=== PATIENT | male | born 1955 | race Hispanic/Latino ===

== ENCOUNTER 2017-10-27 16:19 | Emergency (ER) | payer BC, OTHER ==
[2017-10-27 16:20] VITALS: BMI 24.7
[2017-10-27 16:26] VITALS: O2SAT 100
[2017-10-27 17:44] VITALS: BP 137/78; PULSE 69; RESP 18; TEMP 98.3
--- NOTE | 2017-10-27 17:49 | ED PDOC ---
HPI: Eye Injury/Pain Time Seen by Provider: 10/27/17 16:40 Chief Complaint (Nursing): Eye Problem Chief Complaint (Provider): Right Eye Problem History Per: Patient History/Exam Limitations: no limitations Onset/Duration Of Symptoms: Days (x2) Current Symptoms Are (Timing): Still Present Additional Complaint(s): 62 y/o male with no significant PMHx presenting for evaluation of a right eye problem x2 days. Patient reports over 24 hours ago he began to see a spot with his right eye that follows the movement of his eye. Patient states the spot increased in size yesterday, but has remained the same size since. He denies any pain, redness, discharge, or headache. PMD: Dr. Dillan Betts Past Medical History Reviewed: Historical Data, Nursing Documentation, Vital Signs Vital Signs: Last Vital Signs Temp 98.3 F 10/27/17 17:43 Pulse 69 10/27/17 17:43 Resp 18 10/27/17 17:43 BP 137/78 10/27/17 17:43 Pulse Ox 100 10/27/17 17:43 - Medical History PMH: Arthritis, Asthma Denies: Chronic Kidney Disease - Surgical History Surgical History: No Surg Hx - Family History Family History: States: Unknown Family Hx - Social History Current smoker - smoking cessation education provided: No Alcohol: None Drugs: Denies - Home Medications Home Medications: Ambulatory Orders Medication Instructions Recorded Etanercept [Enbrel] 25 mg SC .QWEEK 03/08/15 Hydrocodone/Acetaminophen [Vicodin 2 % PO DAILY 03/08/15 5 mg-300 mg] Indomethacin [Indocin SR] 1 tab PO DAILY 03/08/15 - Allergies Allergies/Adverse Reactions: Allergies Allergy/AdvReac Type Severity Reaction Status Date / Time No Known Allergies Allergy Verified 10/27/17 16:22 Review of Systems ROS Statement: Except As Marked, All Systems Reviewed And Found Negative Eyes: Positive for: Vision Change (seeing "spot" with right eye). Negative for : Pain, Conjunctivae Inflammation, Redness Neurological: Negative for: Headache Physical Exam - Physical Exam Appears: Positive for: Well, Non-toxic, No Acute Distress Eye Exam: Positive for: Normal appearance (cornea appears normal, no discharge, no redness, no swelling), EOMI, PERRL, Other (VISUAL ACUITY LEFT: 20/15, RIGHT: 20/15). Negative for: Conjunctival injection Neurologic/Psych: Positive for: Alert, Oriented - ECG O2 Sat by Pulse Oximetry: 100 (RA) Pulse Ox Interpretation: Normal Medical Decision Making Medical Decision Makin:45 Impression: Right eye floaters Discussed case with Dr. Calero who recommended the patient follow up with him tomorrow morning at 8am in his office. 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 Scribe Attestation: Documented by Terrence Grimaldo, acting as a scribe for Louis Schaffer MD. Provider Scribe Attestation: All medical record entries made by the Scribe were at my direction and personally dictated by me. I have reviewed the chart and agree that the record accurately reflects my personal performance of the history, physical exam, medical decision making, and the department course for this patient. I have also personally directed, reviewed, and agree with the discharge instructions and disposition. Disposition - Clinical Impression Clinical Impression: Eye problem - Patient ED Disposition Is Patient to be Admitted: No Counseled Patient/Family Regarding: Studies Performed, Diagnosis, Need For Followup - Disposition Referrals: Robert Calero MD [Staff Provider] - Disposition: Routine/Home Disposition Time: 17:45 Condition: GOOD Additional Instructions: Avoid exertion or exercise. Follow up with eye doctor Dr Calero tomorrow at 10 am. Return for worsening. Instructions: Floaters in the Eye Forms: [employer] ([place])
== END 2017-10-27 17:45 | disposition home or self-care (01) ==
LOC: H.ER 16:19
DX: H43.391 Other vitreous opacities, right eye (principal)